=== PATIENT | male | born 1965 | race Two or more races ===

== ENCOUNTER 2021-11-16 16:42 | Inpatient (IN) | payer MEDICAID, OTHER ==
[~2021-11-16] VITALS: Ht 182.9 cm; Wt 113.7 kg
[2021-11-16] MEDS ORDERED: FUROSEMIDE 20 MG TAB PO ONE (17:45)
[2021-11-16 18:39] LABS: Basophils # (auto) 0.1 10 ^3/uL (0-0.2); Eosinophils # (auto) 0.1 10 ^3/uL (0-0.8); Eosinophils % (auto) 1.7 % (0.0-7.0); Hematocrit 46.4 % (41.0-53.0); Lymphocytes # (auto) 1.2 10 ^3/uL (0.4-5.4); Lymphocytes % (auto) 24.2 % (10.0-50.0); Mean Corpuscular Hemoglobin 28.9 pg (28.0-32.0); Mean Corpuscular Hgb Conc. 32.3 g/dL (32.0-36.0); Mean Corpuscular Volume 89.5 fL (80.0-100.0); Monocytes # (auto) 0.7 10 ^3/uL (0-1.3); Monocytes % (auto) 13.7 % (0.0-12.0); Neutrophils # (auto) 2.9 10 ^3/uL (1.6-8.6); Neutrophils % (auto) 59.4 % (37.0-80.0); Nucleated Red Blood Cells % 0.2 %; Red Blood Cells 5.19 10^6/uL (4.5-5.90); Red Cell Distribution Width 15.8 % (11.8-14.3)
[2021-11-16 19:21] LABS: Albumin 3.2 g/dL (3.4-5.0); BUN/Creatinine Ratio 14.5; Bilirubin, Total 0.6 mg/dL (0.2-1.0); Calcium 8.8 mg/dL (8.5-10.1); Total Protein 6.9 g/dL (6.4-8.2)
[2021-11-16] MEDS ORDERED: FUROSEMIDE INJECTION 100 MG in SODIUM CHL 0.9% 100 ML IV ONE (20:30)
[2021-11-16] MEDS ORDERED: NITROGLYCERIN 0.4 MG SL TAB SL PRN (20:30)
[2021-11-16] MEDS ORDERED: FUROSEMIDE INJECTION 0 ML ONE ×2 (21:04→22:28)
[2021-11-16] MEDS: SACUBITRIL-VALSARTAN 24mg/26mg TAB PO SCH (21:38)
[2021-11-16] MEDS: POTASSIUM CHL 20 Meq TABLET PO SCH (21:38)
[2021-11-16] MEDS: METOPROLOL SUCCINATE XL 50 MG TAB PO SCH (21:39)
[2021-11-16] MEDS ORDERED: FUROSEMIDE INJECTION 10 ML ONE (22:34)
[2021-11-17] MEDS ORDERED: FUROSEMIDE INJECTION 10 ML ONE (00:03)
[2021-11-17 00:36] VITALS: BP 133/96
[2021-11-17] MEDS: HYDROmorphone HCL 2 MG/ML VL IV PRN ×4 (03:38→23:15)
[2021-11-17 05:06] VITALS: BP 121/84
[2021-11-17] MEDS: SACUBITRIL-VALSARTAN 24mg/26mg TAB PO SCH ×2 (08:03→21:30)
[2021-11-17] MEDS: METOPROLOL SUCCINATE XL 50 MG TAB PO SCH ×2 (08:04→21:31)
[2021-11-17] MEDS: DIGOXIN 0.25 MG TAB PO SCH (08:04)
[2021-11-17] MEDS: POTASSIUM CHL 20 Meq TABLET PO SCH ×2 (08:05→21:30)
[2021-11-17 09:00] VITALS: BP 136/59
[2021-11-17 13:00] VITALS: BP 111/61
[2021-11-17] MEDS ORDERED: FUROSEMIDE 40 MG/4 ML VIAL IV STA (16:12)
[2021-11-17 17:00] VITALS: BP 131/59
[2021-11-17] MEDS: FUROSEMIDE INJECTION 100 MG in SODIUM CHL 0.9% 100 ML IV SCH (18:40)
[2021-11-17] MEDS: CARVEDILOL 12.5 MG TAB PO SCH (21:29)
[2021-11-18] MEDS: FUROSEMIDE INJECTION 100 MG in SODIUM CHL 0.9% 100 ML IV SCH (02:45)
[2021-11-18 04:36] VITALS: BP 109/68
[2021-11-18 05:38] LABS: Hematocrit 43.8 % (41.0-53.0); Hemoglobin 14.1 g/dL (13.5-17.5); Mean Corpuscular Hemoglobin 29.1 pg (28.0-32.0); Mean Corpuscular Hgb Conc. 32.2 g/dL (32.0-36.0); Mean Corpuscular Volume 90.2 fL (80.0-100.0); Red Blood Cells 4.86 10^6/uL (4.5-5.90); Red Cell Distribution Width 15.7 % (11.8-14.3); White Blood Cell 5.2 10^3/uL (4.4-10.8)
[2021-11-18 05:39] LABS: Calcium 8.9 mg/dL (8.5-10.1); Potassium 4.5 mmol/L (3.5-5.1)
[2021-11-18 05:43] LABS: BUN/Creatinine Ratio 17.1; Bilirubin, Total 1.6 mg/dL (0.2-1.0); Total Protein 6.4 g/dL (6.4-8.2)
[2021-11-18 05:45] LABS: Band Neutrophils % (manual) 0; Basophils % (manual) 0 (0.0-2.0); Blast Cells 0; Eosinophils % (manual) 0 (0-7); Metamyelocytes % 0; Myelocytes % 0; Promyelocytes % 0; Reactive Lymphocytes 0
[2021-11-18 07:22] LABS: Lymphocytes % (manual) 25 (10.0-50.0); Monocytes % (manual) 12 (0-12)
[2021-11-18 09:00] VITALS: BP 116/57
[2021-11-18] MEDS: POTASSIUM CHL 20 Meq TABLET PO SCH ×2 (10:46→22:17)
[2021-11-18] MEDS: METOPROLOL SUCCINATE XL 50 MG TAB PO SCH ×2 (10:47→22:13)
[2021-11-18] MEDS: CARVEDILOL 12.5 MG TAB PO SCH ×2 (10:47→22:00)
[2021-11-18] MEDS: SACUBITRIL-VALSARTAN 24mg/26mg TAB PO SCH ×2 (10:48→22:17)
[2021-11-18] MEDS: DIGOXIN 0.25 MG TAB PO SCH (10:48)
[2021-11-18] MEDS ORDERED: SPIR25TA8 PO (12:13)
[2021-11-18] MEDS ORDERED: SACU1TAB PO (12:13)
[2021-11-18] MEDS ORDERED: CARV12.544 PO (12:13)
[2021-11-18] MEDS ORDERED: ALBU108A5 INH (12:13)
[2021-11-18] MEDS ORDERED: ATOR20TA50 PO (12:13)
[2021-11-18] MEDS ORDERED: FURO40TA4 PO (12:13)
[2021-11-18] MEDS ORDERED: APIX5TAB PO (12:13)
[2021-11-18 13:00] VITALS: BP 96/74
[2021-11-18 17:00] VITALS: BP 104/76
[2021-11-18] MEDS: HYDROmorphone HCL 2 MG/ML VL IV PRN (20:54)
[2021-11-18 22:31] VITALS: BP 107/75
[2021-11-19] VITALS (7 sets, daily range): BP systolic 94–133; BP diastolic 43–87
[2021-11-19] MEDS: HYDROmorphone HCL 2 MG/ML VL IV PRN ×2 (03:46→22:09)
[2021-11-19 05:46] LABS: Basophils # (auto) 0 10 ^3/uL (0-0.2); Basophils % (auto) 0.8 % (0.0-2.0); Eosinophils # (auto) 0 10 ^3/uL (0-0.8); Eosinophils % (auto) 0.7 % (0.0-7.0); Hematocrit 46.5 % (41.0-53.0); Lymphocytes # (auto) 0.9 10 ^3/uL (0.4-5.4); Lymphocytes % (auto) 14.8 % (10.0-50.0); Mean Corpuscular Hemoglobin 29.2 pg (28.0-32.0); Mean Corpuscular Hgb Conc. 32.3 g/dL (32.0-36.0); Mean Corpuscular Volume 90.5 fL (80.0-100.0); Monocytes # (auto) 0.8 10 ^3/uL (0-1.3); Monocytes % (auto) 13.6 % (0.0-12.0); Neutrophils # (auto) 4.1 10 ^3/uL (1.6-8.6); Neutrophils % (auto) 70.1 % (37.0-80.0); Nucleated Red Blood Cells % 0.1 %; Red Blood Cells 5.14 10^6/uL (4.5-5.90); Red Cell Distribution Width 15.4 % (11.8-14.3); White Blood Cell 5.9 10^3/uL (4.4-10.8)
[2021-11-19 06:08] LABS: Albumin 3.2 g/dL (3.4-5.0); BUN/Creatinine Ratio 20.3; Calcium 9.2 mg/dL (8.5-10.1)
[2021-11-19 06:25] LABS: Bilirubin, Total 1.2 mg/dL (0.2-1.0); Total Protein 6.9 g/dL (6.4-8.2)
[2021-11-19 06:46] LABS: Potassium 5.6 mmol/L (3.5-5.1)
[2021-11-19] MEDS: FUROSEMIDE 40 MG/4 ML VIAL IV SCH ×2 (08:26→18:00)
[2021-11-19] MEDS: MORPHINE SULFATE INJECTION 2 MG/ML SYRG IV PRN ×2 (09:03→22:25)
[2021-11-19] MEDS: ONDANSETRON HCL 4 MG/2 ML VIAL IV PRN ×2 (09:39→22:20)
[2021-11-19 11:39] LABS: Basophils # (auto) 0 10 ^3/uL (0-0.2); Basophils % (auto) 0.5 % (0.0-2.0); Eosinophils # (auto) 0 10 ^3/uL (0-0.8); Eosinophils % (auto) 0.6 % (0.0-7.0); Hematocrit 46.9 % (41.0-53.0); Hemoglobin 14.9 g/dL (13.5-17.5); Lymphocytes # (auto) 0.8 10 ^3/uL (0.4-5.4); Lymphocytes % (auto) 15.3 % (10.0-50.0); Mean Corpuscular Hemoglobin 28.8 pg (28.0-32.0); Mean Corpuscular Hgb Conc. 31.8 g/dL (32.0-36.0); Mean Corpuscular Volume 90.5 fL (80.0-100.0); Monocytes # (auto) 0.8 10 ^3/uL (0-1.3); Monocytes % (auto) 13.8 % (0.0-12.0); Neutrophils # (auto) 3.9 10 ^3/uL (1.6-8.6); Neutrophils % (auto) 69.8 % (37.0-80.0); Nucleated Red Blood Cells % 0.2 %; Red Blood Cells 5.18 10^6/uL (4.5-5.90); Red Cell Distribution Width 15.4 % (11.8-14.3); White Blood Cell 5.5 10^3/uL (4.4-10.8)
[2021-11-19 12:02] LABS: Albumin 3.3 g/dL (3.4-5.0); BUN/Creatinine Ratio 20.7; Bilirubin, Total 1.3 mg/dL (0.2-1.0); Calcium 8.6 mg/dL (8.5-10.1); Total Protein 7.1 g/dL (6.4-8.2)
[2021-11-19] MEDS: DIGOXIN 0.25 MG TAB PO SCH (12:28)
[2021-11-19] MEDS: SACUBITRIL-VALSARTAN 24mg/26mg TAB PO SCH ×2 (12:28→22:00)
[2021-11-19 12:30] LABS: Potassium 5.7 mmol/L (3.5-5.1)
[2021-11-19] MEDS: CARVEDILOL 12.5 MG TAB PO SCH ×2 (12:31→22:00)
[2021-11-20 05:00] VITALS: BP 110/84
[2021-11-20] MEDS: FUROSEMIDE 40 MG/4 ML VIAL IV SCH ×2 (06:07→18:22)
[2021-11-20 07:19] LABS: Basophils # (auto) 0 10 ^3/uL (0-0.2); Basophils % (auto) 0.6 % (0.0-2.0); Eosinophils # (auto) 0.1 10 ^3/uL (0-0.8); Eosinophils % (auto) 1.1 % (0.0-7.0); Hematocrit 44.7 % (41.0-53.0); Hemoglobin 14.4 g/dL (13.5-17.5); Mean Corpuscular Hemoglobin 29.7 pg (28.0-32.0); Mean Corpuscular Hgb Conc. 32.3 g/dL (32.0-36.0); Mean Corpuscular Volume 91.9 fL (80.0-100.0); Neutrophils # (auto) 3.4 10 ^3/uL (1.6-8.6); Neutrophils % (auto) 59.2 % (37.0-80.0); Nucleated Red Blood Cells % 0.2 %; Red Blood Cells 4.86 10^6/uL (4.5-5.90); Red Cell Distribution Width 15.6 % (11.8-14.3); White Blood Cell 5.7 10^3/uL (4.4-10.8)
[2021-11-20 07:36] LABS: Lymphocytes % (auto) 20.8 % (10.0-50.0); Monocytes % (auto) 17.3 % (0.0-12.0)
[2021-11-20 07:38] LABS: Lymphocytes # (auto) 1.3 10 ^3/uL (0.4-5.4); Monocytes # (auto) 0.9 10 ^3/uL (0-1.3)
[2021-11-20 08:30] VITALS: BP 140/81
[2021-11-20] MEDS: CARVEDILOL 12.5 MG TAB PO SCH ×2 (09:35→22:00)
[2021-11-20] MEDS: DIGOXIN 0.25 MG TAB PO SCH (09:35)
[2021-11-20] MEDS: SACUBITRIL-VALSARTAN 24mg/26mg TAB PO SCH ×2 (09:35→22:00)
[2021-11-20 13:02] VITALS: BP 136/62
[2021-11-20] MEDS: HYDROmorphone HCL 2 MG/ML VL IV PRN ×2 (13:08→22:40)
[2021-11-20 14:02] LABS: BUN/Creatinine Ratio 21.3; Calcium 8.4 mg/dL (8.5-10.1); Potassium 4.4 mmol/L (3.5-5.1)
[2021-11-20 15:55] VITALS: BP 81/61
[2021-11-20 20:00] VITALS: BP 105/55
[2021-11-20 22:00] VITALS: BP 101/71
[2021-11-21 05:00] VITALS: BP 131/82
[2021-11-21] MEDS: HYDROmorphone HCL 2 MG/ML VL IV PRN ×3 (05:33→23:46)
[2021-11-21] MEDS: FUROSEMIDE 40 MG/4 ML VIAL IV SCH ×2 (06:04→19:55)
[2021-11-21 06:22] LABS: Potassium 5.1 mmol/L (3.5-5.1)
[2021-11-21 06:37] LABS: Albumin 2.9 g/dL (3.4-5.0); BUN/Creatinine Ratio 20.3; Bilirubin, Total 1.2 mg/dL (0.2-1.0); Calcium 8.6 mg/dL (8.5-10.1); Total Protein 6.3 g/dL (6.4-8.2)
[2021-11-21 08:55] VITALS: BP 135/68
[2021-11-21] MEDS: SACUBITRIL-VALSARTAN 24mg/26mg TAB PO SCH ×2 (11:48→22:00)
[2021-11-21] MEDS: DIGOXIN 0.25 MG TAB PO SCH (11:49)
[2021-11-21] MEDS: CARVEDILOL 12.5 MG TAB PO SCH ×2 (11:50→22:00)
[2021-11-21 12:34] VITALS: BP 127/73
[2021-11-21 16:46] VITALS: BP 115/85
[2021-11-21 23:50] VITALS: BP 105/66
[2021-11-22 04:50] VITALS: BP 121/78
[2021-11-22] MEDS: FUROSEMIDE 40 MG/4 ML VIAL IV SCH ×2 (06:09→19:19)
[2021-11-22] MEDS: HYDROmorphone HCL 2 MG/ML VL IV PRN ×2 (06:25→13:07)
[2021-11-22 09:00] VITALS: BP 127/89
[2021-11-22] MEDS: SACUBITRIL-VALSARTAN 24mg/26mg TAB PO SCH ×2 (11:05→22:27)
[2021-11-22] MEDS: DIGOXIN 0.25 MG TAB PO SCH (11:05)
[2021-11-22] MEDS: CARVEDILOL 12.5 MG TAB PO SCH ×2 (11:06→22:28)
[2021-11-22 12:00] VITALS: BP 142/72
[2021-11-22 16:00] VITALS: BP 131/83
[2021-11-22 20:00] VITALS: BP 112/87
[2021-11-22] MEDS: MAGNESIUM SULFATE 1GM/100ML 100 ML IV SCH ×3 (21:18→23:36)
[2021-11-22 21:46] VITALS: BP 112/87
[2021-11-22] MEDS: PIPERACILLIN-TAZO 4.5GM 100 ML IV SCH (22:55)
[2021-11-23] VITALS (7 sets, daily range): BP systolic 95–128; BP diastolic 58–86
[2021-11-23] MEDS: MAGNESIUM SULFATE 1GM/100ML 100 ML IV SCH (01:00)
[2021-11-23] MEDS: PIPERACILLIN-TAZO 4.5GM 100 ML IV SCH ×3 (05:05→21:29)
[2021-11-23] MEDS: FUROSEMIDE 40 MG/4 ML VIAL IV SCH ×2 (05:05→18:42)
[2021-11-23] MEDS: HYDROmorphone HCL 2 MG/ML VL IV PRN ×3 (06:13→23:48)
[2021-11-23] MEDS ORDERED: OMNIPAQUE ORAL SOLN 500ml 12mg/ml PO ONE (07:31)
[2021-11-23 09:23] LABS: Albumin 2.6 g/dL (3.4-5.0); BUN/Creatinine Ratio 17.5; Potassium 3.8 mmol/L (3.5-5.1)
[2021-11-23 09:25] LABS: Bilirubin, Total 1.1 mg/dL (0.2-1.0); Total Protein 6.1 g/dL (6.4-8.2)
[2021-11-23] MEDS ORDERED: IOHEXOL 300 MG/ML 100ML BOTTLE IJ ONE (09:51)
[2021-11-23] MEDS: CARVEDILOL 12.5 MG TAB PO SCH ×2 (11:09→21:27)
[2021-11-23] MEDS: SACUBITRIL-VALSARTAN 24mg/26mg TAB PO SCH ×2 (11:09→21:28)
[2021-11-23] MEDS: DIGOXIN 0.25 MG TAB PO SCH (11:10)
[2021-11-24] VITALS (7 sets, daily range): BP systolic 91–125; BP diastolic 52–80
[2021-11-24] MEDS: FUROSEMIDE 40 MG/4 ML VIAL IV SCH ×2 (05:46→17:30)
[2021-11-24] MEDS: PIPERACILLIN-TAZO 4.5GM 100 ML IV SCH ×3 (05:48→21:26)
[2021-11-24] MEDS: CARVEDILOL 12.5 MG TAB PO SCH ×2 (09:59→22:00)
[2021-11-24] MEDS: SACUBITRIL-VALSARTAN 24mg/26mg TAB PO SCH ×2 (10:00→21:26)
[2021-11-24] MEDS: DIGOXIN 0.25 MG TAB PO SCH (10:00)
[2021-11-24] MEDS: HYDROcodone-ACET 5/325MG TAB PO PRN ×2 (16:09→21:27)
[2021-11-25 05:00] VITALS: BP 130/65
[2021-11-25] MEDS: PIPERACILLIN-TAZO 4.5GM 100 ML IV SCH ×2 (05:51→14:00)
[2021-11-25] MEDS: FUROSEMIDE 40 MG/4 ML VIAL IV SCH ×2 (05:51→17:45)
[2021-11-25 09:00] VITALS: BP 136/83
[2021-11-25] MEDS: DIGOXIN 0.25 MG TAB PO SCH (10:00)
[2021-11-25] MEDS: SACUBITRIL-VALSARTAN 24mg/26mg TAB PO SCH (10:00)
[2021-11-25] MEDS: CARVEDILOL 12.5 MG TAB PO SCH (10:00)
[2021-11-25 11:07] VITALS: BP 134/90
[2021-11-25] MEDS: HYDROcodone-ACET 5/325MG TAB PO PRN ×2 (11:21→17:46)
[2021-11-25 13:00] VITALS: BP 131/100
[2021-11-25 17:00] VITALS: BP 103/70
[2021-11-25 17:54] VITALS: BP 131/81
== END 2021-11-25 20:55 | disposition home or self-care (01) | DRG 194 ==
LOC: ER 16:42 → EDBD 16:42 → TELE 20:22 → TELE-WESTW 23:33
PROVIDERS: ADMIT Internal Medicine Cardiovascular Disease; ATTEND Internal Medicine Cardiovascular Disease
DX: I11.0 Hypertensive heart disease with heart failure (principal); E66.01 Morbid (severe) obesity due to excess calories; I50.21 Acute systolic (congestive) heart failure; I48.91 Unspecified atrial fibrillation; I49.3 Ventricular premature depolarization; Z68.34 Body mass index [BMI] 34.0-34.9, adult; Z95.810 Presence of automatic (implantable) cardiac defibrillator; K42.9 Umbilical hernia without obstruction or gangrene; Z20.822 Contact with and (suspected) exposure to COVID-19
CPT/HCPCS: 36415; 71046; 74177; 80048; 80053; 83735; 83880; 84484; 85007; 85025; 85027; 87426; 93005; 96365; 99291; G0378; J2405; J2543

== ENCOUNTER 2021-12-04 15:43 | Inpatient (IN) | payer MEDICAID ==
[~2021-12-04] VITALS: Ht 188 cm; Wt 114.5 kg
[~2021-12-04 15:43] MED LIST: ALBU108A5 INH; APIX5TAB PO; ATOR20TA50 PO; CARV12.544 PO; FURO40TA4 PO; SACU1TAB PO; SPIR25TA8 PO
[2021-12-04 16:56] LABS: Basophils # (auto) 0.1 10 ^3/uL (0-0.2); Basophils % (auto) 2.2 % (0.0-2.0); Eosinophils # (auto) 0.1 10 ^3/uL (0-0.8); Eosinophils % (auto) 1.5 % (0.0-7.0); Hematocrit 43.4 % (41.0-53.0); Hemoglobin 14.1 g/dL (13.5-17.5); Lymphocytes # (auto) 0.9 10 ^3/uL (0.4-5.4); Lymphocytes % (auto) 19.5 % (10.0-50.0); Mean Corpuscular Hemoglobin 28.6 pg (28.0-32.0); Mean Corpuscular Hgb Conc. 32.5 g/dL (32.0-36.0); Mean Corpuscular Volume 88.1 fL (80.0-100.0); Monocytes # (auto) 0.6 10 ^3/uL (0-1.3); Monocytes % (auto) 12.6 % (0.0-12.0); Neutrophils # (auto) 2.9 10 ^3/uL (1.6-8.6); Neutrophils % (auto) 64.2 % (37.0-80.0); Nucleated Red Blood Cells % 0.3 %; Red Blood Cells 4.93 10^6/uL (4.5-5.90); Red Cell Distribution Width 15.5 % (11.8-14.3); White Blood Cell 4.6 10^3/uL (4.4-10.8)
[2021-12-04 17:21] LABS: Calcium 8.5 mg/dL (8.5-10.1); Magnesium 2.2 mg/dL (1.6-2.6)
[2021-12-04 17:26] LABS: BUN/Creatinine Ratio 19.1; Bilirubin, Total 0.6 mg/dL (0.2-1.0); Total Protein 7.4 g/dL (6.4-8.2)
[2021-12-04] MEDS ORDERED: ONDANSETRON HCL 4 MG/2 ML VIAL IV ONE (17:45)
[2021-12-04] MEDS ORDERED: MORPHINE SULFATE 4 MG/ML SYR/VIAL IV ONE (17:45)
[2021-12-04 17:48] LABS: Urine Bacteria NONE SEEN /hpf (None Seen); Urine Blood Negative /uL (Negative); Urine Specific Gravity 1.018 (1.001-1.035); Urine WBC 1 /hpf (0 - 3)
[2021-12-04] MEDS ORDERED: NITROGLYCERIN 0.4 MG SL TAB SL PRN (22:00)
[2021-12-04] MEDS ORDERED: MORPHINE SULFATE INJECTION 2 MG/ML SYRG IV PRN ×2 (22:00)
[2021-12-04 23:05] VITALS: BP 134/76
[2021-12-04 23:10] VITALS: BP 134/76
[2021-12-04] MEDS: ATORVASTATIN 20 MG TAB PO SCH (23:26)
[2021-12-04] MEDS: HYDROcodone-ACET 5/325MG TAB PO PRN (23:27)
[2021-12-05] MEDS: DOXYCYCLINE 100MG/250ML 250 ML IV SCH ×2 (01:43→12:46)
[2021-12-05] MEDS: ACETAMINOPHEN 325 MG TAB PO PRN ×2 (04:26→21:22)
[2021-12-05 04:32] VITALS: BP 107/82
[2021-12-05] MEDS: HYDROcodone-ACET 5/325MG TAB PO PRN ×3 (06:00→19:50)
[2021-12-05 06:38] LABS: Basophils # (auto) 0 10 ^3/uL (0-0.2); Eosinophils # (auto) 0.1 10 ^3/uL (0-0.8); Eosinophils % (auto) 2.6 % (0.0-7.0); Hematocrit 42.9 % (41.0-53.0); Hemoglobin 13.9 g/dL (13.5-17.5); Lymphocytes # (auto) 1.2 10 ^3/uL (0.4-5.4); Lymphocytes % (auto) 24.3 % (10.0-50.0); Mean Corpuscular Hemoglobin 28.5 pg (28.0-32.0); Mean Corpuscular Hgb Conc. 32.3 g/dL (32.0-36.0); Mean Corpuscular Volume 88.1 fL (80.0-100.0); Monocytes # (auto) 0.8 10 ^3/uL (0-1.3); Monocytes % (auto) 16.8 % (0.0-12.0); Neutrophils # (auto) 2.7 10 ^3/uL (1.6-8.6); Neutrophils % (auto) 55.3 % (37.0-80.0); Nucleated Red Blood Cells % 0.1 %; Red Blood Cells 4.87 10^6/uL (4.5-5.90); Red Cell Distribution Width 15.6 % (11.8-14.3); White Blood Cell 4.9 10^3/uL (4.4-10.8)
[2021-12-05 06:51] LABS: Calcium 8.6 mg/dL (8.5-10.1); Potassium 3.9 mmol/L (3.5-5.1)
[2021-12-05 06:54] LABS: BUN/Creatinine Ratio 19.4
[2021-12-05 09:00] VITALS: BP 137/99
[2021-12-05] MEDS: FAMOTIDINE 20 MG TAB PO SCH (09:19)
[2021-12-05] MEDS: ASPirin-EC 81 mg tab PO SCH (09:20)
[2021-12-05] MEDS: CLOTRIMAZOLE 1 % CREAM 15GM TOP SCH ×2 (09:40→21:47)
[2021-12-05 13:00] VITALS: BP 144/106
[2021-12-05] MEDS ORDERED: POTASSIUM CHL 20 Meq TABLET PO ONE (14:00)
[2021-12-05] MEDS ORDERED: FUROSEMIDE 40 MG/4 ML VIAL IV ONE (14:00)
[2021-12-05] MEDS ORDERED: CARVEDILOL 3.125 MG TAB PO ONE (14:00)
[2021-12-05] MEDS ORDERED: LISINOPRIL 5 MG TAB PO SCH (16:17)
[2021-12-05] MEDS ORDERED: FURO40TA4 PO (16:23)
[2021-12-05] MEDS ORDERED: CLOT1CRE56 TOP (16:23)
[2021-12-05] MEDS ORDERED: APIX5TAB PO (16:23)
[2021-12-05] MEDS ORDERED: SACU1TAB PO (16:23)
[2021-12-05] MEDS ORDERED: ALBU108A5 INH (16:23)
[2021-12-05] MEDS ORDERED: ATOR20TA50 PO (16:23)
[2021-12-05] MEDS ORDERED: DOXY-338 PO (16:23)
[2021-12-05] MEDS ORDERED: CARV12.544 PO (16:23)
[2021-12-05 17:00] VITALS: BP 137/77
[2021-12-05 20:22] VITALS: BP 123/91
[2021-12-05] MEDS: DOXYCYCLINE 100 MG TAB/CAP PO SCH (21:47)
[2021-12-05] MEDS: SACUBITRIL-VALSARTAN 24mg/26mg TAB PO SCH (21:47)
[2021-12-05] MEDS: CARVEDILOL 12.5 MG TAB PO SCH (21:47)
[2021-12-05] MEDS: ATORVASTATIN 20 MG TAB PO SCH (21:47)
[2021-12-05] MEDS ORDERED: CARVEDILOL 3.125 MG TAB PO SCH (22:00)
[2021-12-05] MEDS: ONDANSETRON HCL 4 MG/2 ML VIAL IV PRN (22:32)
[2021-12-06] MEDS: HYDROcodone-ACET 5/325MG TAB PO PRN ×2 (04:23→14:30)
[2021-12-06 05:07] VITALS: BP 104/69
[2021-12-06 05:59] LABS: Basophils # (auto) 0 10 ^3/uL (0-0.2); Basophils % (auto) 0.9 % (0.0-2.0); Eosinophils # (auto) 0.1 10 ^3/uL (0-0.8); Eosinophils % (auto) 2.4 % (0.0-7.0); Hematocrit 40.4 % (41.0-53.0); Hemoglobin 13.2 g/dL (13.5-17.5); Lymphocytes # (auto) 0.9 10 ^3/uL (0.4-5.4); Lymphocytes % (auto) 24.5 % (10.0-50.0); Mean Corpuscular Hemoglobin 28.8 pg (28.0-32.0); Mean Corpuscular Hgb Conc. 32.7 g/dL (32.0-36.0); Mean Corpuscular Volume 88.1 fL (80.0-100.0); Monocytes # (auto) 0.7 10 ^3/uL (0-1.3); Neutrophils % (auto) 53.9 % (37.0-80.0); Nucleated Red Blood Cells % 0.1 %; Red Blood Cells 4.58 10^6/uL (4.5-5.90); Red Cell Distribution Width 15.8 % (11.8-14.3); White Blood Cell 3.6 10^3/uL (4.4-10.8)
[2021-12-06 06:11] LABS: Monocytes % (auto) 18.3 % (0.0-12.0)
[2021-12-06 06:14] LABS: Potassium 4.3 mmol/L (3.5-5.1)
[2021-12-06 06:20] LABS: BUN/Creatinine Ratio 18.1; Calcium 8.9 mg/dL (8.5-10.1)
[2021-12-06 08:40] VITALS: BP 116/76
[2021-12-06] MEDS ORDERED: FUROSEMIDE 20 MG TAB PO SCH (10:00)
[2021-12-06] MEDS ORDERED: POTASSIUM CHL 20 Meq TABLET PO SCH (10:00)
[2021-12-06] MEDS ORDERED: FUROSEMIDE 40 MG/4 ML VIAL IV SCH ×2 (10:00→22:00)
[2021-12-06] MEDS ORDERED: THIAMINE HCL 100 MG TAB PO SCH (10:00)
[2021-12-06] MEDS ORDERED: FOLIC ACID 1 MG TAB PO SCH (10:00)
[2021-12-06] MEDS: ONDANSETRON HCL 4 MG/2 ML VIAL IV PRN (10:17)
[2021-12-06] MEDS: SACUBITRIL-VALSARTAN 24mg/26mg TAB PO SCH (10:22)
[2021-12-06] MEDS: ASPirin-EC 81 mg tab PO SCH (10:22)
[2021-12-06] MEDS: CARVEDILOL 12.5 MG TAB PO SCH (10:24)
[2021-12-06] MEDS: FAMOTIDINE 20 MG TAB PO SCH (10:25)
[2021-12-06] MEDS: DOXYCYCLINE 100 MG TAB/CAP PO SCH (10:26)
[2021-12-06] MEDS: CLOTRIMAZOLE 1 % CREAM 15GM TOP SCH (10:29)
[2021-12-06 13:00] VITALS: BP 111/85
[2021-12-06] MEDS ORDERED: FUROSEMIDE 40 MG/4 ML VIAL IV ONE (14:00)
[2021-12-06 16:59] VITALS: BP 126/75
[2021-12-06 17:37] VITALS: BP 126/75
== END 2021-12-06 18:30 | disposition home health service (06) | DRG 194 ==
LOC: ER 15:43 → TELE-WESTW 21:55
PROVIDERS: ADMIT Nurse Practitioner Family; ATTEND Nurse Practitioner Family
DX: I13.0 Hypertensive heart and chronic kidney disease with heart failure and stage 1 through stage 4 chronic kidney disease, or unspecified chronic kidney disease (principal); I27.20 Pulmonary hypertension, unspecified; R18.8 Other ascites; I42.0 Dilated cardiomyopathy; B35.3 Tinea pedis; E66.9 Obesity, unspecified; F12.90 Cannabis use, unspecified, uncomplicated; I48.0 Paroxysmal atrial fibrillation; E78.5 Hyperlipidemia, unspecified; I50.23 Acute on chronic systolic (congestive) heart failure; R19.7 Diarrhea, unspecified; J44.9 Chronic obstructive pulmonary disease, unspecified; J98.11 Atelectasis; Z20.822 Contact with and (suspected) exposure to COVID-19; K42.9 Umbilical hernia without obstruction or gangrene; N18.30 Chronic kidney disease, stage 3 unspecified; Z68.32 Body mass index [BMI] 32.0-32.9, adult; Z79.01 Long term (current) use of anticoagulants; Z79.899 Other long term (current) drug therapy; Z86.73 Personal history of transient ischemic attack (TIA), and cerebral infarction without residual deficits; Z91.14 Patient's other noncompliance with medication regimen; Z95.810 Presence of automatic (implantable) cardiac defibrillator
CPT/HCPCS: 36415; 71045; 74176; 80048; 80053; 80061; 81001; 82140; 83735; 83880; 84484; 85025; 87045; 87081; 87427; 93005; 93306; 96374; 96375; 99291; G0378; J2405; J3490

== ENCOUNTER 2021-12-13 16:46 | Inpatient (IN) | payer MEDICAID ==
[~2021-12-13] VITALS: Ht 185.4 cm; Wt 103.0 kg
[~2021-12-13 16:46] MED LIST changes: +CLOT1CRE56 TOP; +DOXY-338 PO; -SPIR25TA8 PO
[2021-12-13 18:30] LABS: Basophils # (auto) 0.1 10 ^3/uL (0-0.2); Eosinophils # (auto) 0.1 10 ^3/uL (0-0.8); Eosinophils % (auto) 1.1 % (0.0-7.0); Hematocrit 41.7 % (41.0-53.0); Hemoglobin 13.5 g/dL (13.5-17.5); Lymphocytes # (auto) 0.7 10 ^3/uL (0.4-5.4); Mean Corpuscular Hemoglobin 27.9 pg (28.0-32.0); Mean Corpuscular Hgb Conc. 32.4 g/dL (32.0-36.0); Monocytes # (auto) 0.8 10 ^3/uL (0-1.3); Monocytes % (auto) 17.4 % (0.0-12.0); Neutrophils # (auto) 3.1 10 ^3/uL (1.6-8.6); Neutrophils % (auto) 64.5 % (37.0-80.0); Nucleated Red Blood Cells % 0.2 %; Red Blood Cells 4.84 10^6/uL (4.5-5.90); Red Cell Distribution Width 16.1 % (11.8-14.3); White Blood Cell 4.8 10^3/uL (4.4-10.8)
[2021-12-13 18:39] LABS: Calcium 8.2 mg/dL (8.5-10.1); Magnesium 1.8 mg/dL (1.6-2.6); Potassium 3.4 mmol/L (3.5-5.1)
[2021-12-13 18:47] LABS: BUN/Creatinine Ratio 13.7; Bilirubin, Total 1.8 mg/dL (0.2-1.0)
[2021-12-13 20:43] LABS: Urine Bacteria NONE SEEN /hpf (None Seen); Urine Blood TRACE /uL (Negative); Urine Hyaline Cast FEW /lpf (0 - 2); Urine Mucus FEW (None Seen); Urine Specific Gravity 1.022 (1.001-1.035); Urine WBC 3 /hpf (0 - 3)
[2021-12-13] MEDS ORDERED: MORPHINE SULFATE INJECTION 2 MG/ML SYRG IV PRN (21:15)
[2021-12-13] MEDS ORDERED: ONDANSETRON HCL 4 MG/2 ML VIAL IV PRN (21:15)
[2021-12-13] MEDS ORDERED: DOCUSATE SOD 100 MG CAP PO PRN (21:15)
[2021-12-13] MEDS ORDERED: NITROGLYCERIN 0.4 MG SL TAB SL PRN (21:15)
[2021-12-13] MEDS: POTASSIUM CHL 20MEQ/100ML 100 ML IV SCH (22:14)
[2021-12-13] MEDS: CARVEDILOL 12.5 MG TAB PO SCH (22:15)
[2021-12-13] MEDS: APIXABAN 5 MG TAB PO SCH (22:15)
[2021-12-13] MEDS: ATORVASTATIN 20 MG TAB PO SCH (22:16)
[2021-12-13] MEDS ORDERED: FUROSEMIDE 20 MG/2 ML VIAL ONE (22:27)
[2021-12-13] MEDS ORDERED: FUROSEMIDE 20 MG/2 ML VIAL IV ONE (22:30)
[2021-12-13 23:15] VITALS: BP 115/84
[2021-12-14] MEDS: SACUBITRIL-VALSARTAN 24mg/26mg TAB PO SCH ×3 (00:06→22:14)
[2021-12-14] MEDS: HYDROcodone-ACET 5/325MG TAB PO PRN ×3 (01:42→17:45)
[2021-12-14] MEDS ORDERED: POTASSIUM CHL 20MEQ/100ML 100 ML IV ONE (03:38)
[2021-12-14] MEDS: POTASSIUM CHL 20MEQ/100ML 100 ML IV SCH (03:40)
[2021-12-14 04:38] VITALS: BP 115/84
[2021-12-14] MEDS: FUROSEMIDE 40 MG/4 ML VIAL IV SCH ×2 (05:37→17:45)
[2021-12-14 05:59] LABS: Basophils # (auto) 0 10 ^3/uL (0-0.2); Basophils % (auto) 1.1 % (0.0-2.0); Eosinophils # (auto) 0.1 10 ^3/uL (0-0.8); Hemoglobin 12.8 g/dL (13.5-17.5); Lymphocytes # (auto) 1.3 10 ^3/uL (0.4-5.4); Lymphocytes % (auto) 28.4 % (10.0-50.0); Mean Corpuscular Hemoglobin 28.2 pg (28.0-32.0); Mean Corpuscular Hgb Conc. 32.8 g/dL (32.0-36.0); Mean Corpuscular Volume 85.9 fL (80.0-100.0); Monocytes # (auto) 0.8 10 ^3/uL (0-1.3); Monocytes % (auto) 17.8 % (0.0-12.0); Neutrophils # (auto) 2.3 10 ^3/uL (1.6-8.6); Neutrophils % (auto) 50.7 % (37.0-80.0); Nucleated Red Blood Cells % 0.2 %; Red Blood Cells 4.54 10^6/uL (4.5-5.90); Red Cell Distribution Width 15.9 % (11.8-14.3); White Blood Cell 4.5 10^3/uL (4.4-10.8)
[2021-12-14 06:25] LABS: BUN/Creatinine Ratio 15.4; Calcium 8.2 mg/dL (8.5-10.1); Magnesium 1.9 mg/dL (1.6-2.6); Potassium 3.6 mmol/L (3.5-5.1)
[2021-12-14 08:00] VITALS: BP 98/56
[2021-12-14] MEDS: CARVEDILOL 12.5 MG TAB PO SCH ×2 (10:25→22:13)
[2021-12-14] MEDS: APIXABAN 5 MG TAB PO SCH ×2 (10:25→22:13)
[2021-12-14 12:00] VITALS: BP 110/71
[2021-12-14 16:00] VITALS: BP 112/76
[2021-12-14] MEDS ORDERED: MORPHINE SULFATE INJECTION 2 MG/ML SYRG IV PRN (16:00)
[2021-12-14 20:00] VITALS: BP 138/87
[2021-12-14 21:58] VITALS: BP 133/87
[2021-12-14] MEDS: ATORVASTATIN 20 MG TAB PO SCH (22:14)
[2021-12-15] MEDS: HYDROcodone-ACET 5/325MG TAB PO PRN ×2 (03:21→11:23)
[2021-12-15 05:12] VITALS: BP 111/51
[2021-12-15] MEDS: FUROSEMIDE 40 MG/4 ML VIAL IV SCH (05:39)
[2021-12-15 09:06] VITALS: BP 121/76
[2021-12-15] MEDS: CARVEDILOL 12.5 MG TAB PO SCH (10:25)
[2021-12-15] MEDS: APIXABAN 5 MG TAB PO SCH (10:26)
[2021-12-15] MEDS: SACUBITRIL-VALSARTAN 24mg/26mg TAB PO SCH (10:26)
[2021-12-15 12:34] VITALS: BP 97/73
== END 2021-12-15 14:22 | disposition home or self-care (01) | DRG 203 ==
LOC: EDBD 16:46 → ER 16:46 → TELE 21:09 → TELE-WESTW 23:00
PROVIDERS: ADMIT Hospitalist; ATTEND Hospitalist
PROC: 4B02XSZ Measurement of Cardiac Pacemaker, External Approach (ICD-10-PCS; principal; 2021-12-14)
DX: R07.9 Chest pain, unspecified (principal); I50.23 Acute on chronic systolic (congestive) heart failure; I42.9 Cardiomyopathy, unspecified; I13.0 Hypertensive heart and chronic kidney disease with heart failure and stage 1 through stage 4 chronic kidney disease, or unspecified chronic kidney disease; I48.0 Paroxysmal atrial fibrillation; E78.5 Hyperlipidemia, unspecified; N18.30 Chronic kidney disease, stage 3 unspecified; J44.9 Chronic obstructive pulmonary disease, unspecified; Z20.822 Contact with and (suspected) exposure to COVID-19; M15.9 Polyosteoarthritis, unspecified; Z83.3 Family history of diabetes mellitus; Z95.810 Presence of automatic (implantable) cardiac defibrillator; Z80.1 Family history of malignant neoplasm of trachea, bronchus and lung
CPT/HCPCS: 36415; 71045; 80048; 80053; 81001; 83735; 83880; 84484; 85025; 87081; 93005; 93970; 96374; G0378; J3480

== ENCOUNTER 2021-12-17 00:41 | Inpatient (IN) | payer MEDICAID ==
[~2021-12-17] VITALS: Ht 182.9 cm; Wt 103.5 kg
[~2021-12-17 00:41] MED LIST changes: -CLOT1CRE56 TOP; -DOXY-338 PO
[2021-12-17] MEDS ORDERED: ALBUTEROL SULF 2.5 MG/0.5ML(0.5%) NEB SOLN NEB ONE (02:15)
[2021-12-17] MEDS ORDERED: FUROSEMIDE 100 MG/10ML VIAL IV ONE (02:15)
[2021-12-17 02:43] LABS: Hematocrit 41.7 % (41.0-53.0); Hemoglobin 13.6 g/dL (13.5-17.5); Mean Corpuscular Hemoglobin 28.2 pg (28.0-32.0); Mean Corpuscular Hgb Conc. 32.7 g/dL (32.0-36.0); Mean Corpuscular Volume 86.1 fL (80.0-100.0); Red Blood Cells 4.84 10^6/uL (4.5-5.90); Red Cell Distribution Width 15.9 % (11.8-14.3); White Blood Cell 5.8 10^3/uL (4.4-10.8)
[2021-12-17 03:01] LABS: Band Neutrophils % (manual) 0; Basophils % (manual) 0 (0.0-2.0); Blast Cells 0; Eosinophils % (manual) 0 (0-7); Metamyelocytes % 0; Myelocytes % 0; Promyelocytes % 0; Reactive Lymphocytes 0
[2021-12-17 03:16] LABS: Calcium 8.4 mg/dL (8.5-10.1); Potassium 3.5 mmol/L (3.5-5.1)
[2021-12-17 03:19] LABS: BUN/Creatinine Ratio 14.3
[2021-12-17 03:23] LABS: Bilirubin, Total 1.1 mg/dL (0.2-1.0)
[2021-12-17] MEDS ORDERED: HYDROmorphone HCL 2 MG/ML VL IV ONE (04:00)
[2021-12-17 04:08] LABS: Lymphocytes % (manual) 16 (10.0-50.0); Monocytes % (manual) 18 (0-12)
[2021-12-17] MEDS ORDERED: ACETAMINOPHEN 325 MG TAB PO PRN (05:30)
[2021-12-17] MEDS ORDERED: hydrALAZINE HCL 10 MG TAB PO PRN (05:30)
[2021-12-17] MEDS ORDERED: ONDANSETRON HCL 4 MG/2 ML VIAL IV PRN (05:45)
[2021-12-17] MEDS: HYDROcodone-ACET 5/325MG TAB PO PRN ×2 (06:53→17:30)
[2021-12-17 07:01] LABS: Urine Bacteria NONE SEEN /hpf (None Seen); Urine Blood Negative /uL (Negative); Urine Specific Gravity 1.004 (1.001-1.035); Urine WBC 2 /hpf (0 - 3)
[2021-12-17 08:29] LABS: BUN/Creatinine Ratio 14.6; Calcium 8.5 mg/dL (8.5-10.1); Potassium 3.2 mmol/L (3.5-5.1)
[2021-12-17 08:37] LABS: Basophils # (auto) 0 10 ^3/uL (0-0.2); Basophils % (auto) 0.6 % (0.0-2.0); Eosinophils # (auto) 0 10 ^3/uL (0-0.8); Eosinophils % (auto) 0.3 % (0.0-7.0); Hematocrit 41.8 % (41.0-53.0); Hemoglobin 13.8 g/dL (13.5-17.5); Lymphocytes # (auto) 0.7 10 ^3/uL (0.4-5.4); Lymphocytes % (auto) 13.2 % (10.0-50.0); Mean Corpuscular Hemoglobin 28.1 pg (28.0-32.0); Mean Corpuscular Hgb Conc. 32.9 g/dL (32.0-36.0); Mean Corpuscular Volume 85.4 fL (80.0-100.0); Monocytes % (auto) 17.7 % (0.0-12.0); Neutrophils # (auto) 3.7 10 ^3/uL (1.6-8.6); Neutrophils % (auto) 68.2 % (37.0-80.0); Red Cell Distribution Width 16.2 % (11.8-14.3); White Blood Cell 5.4 10^3/uL (4.4-10.8)
[2021-12-17] MEDS: FUROSEMIDE 40 MG/4 ML VIAL IV SCH ×2 (10:55→22:16)
[2021-12-17] MEDS: FAMOTIDINE 20 MG TAB PO SCH (10:55)
[2021-12-17] MEDS: POTASSIUM CHL 20 Meq TABLET PO SCH (10:55)
[2021-12-17 13:00] VITALS: BP 158/61
[2021-12-17 17:00] VITALS: BP 145/115
[2021-12-17 17:30] VITALS: BP 138/87
[2021-12-17 21:00] LABS: Magnesium 1.7 mg/dL (1.6-2.6); Potassium 3.7 mmol/L (3.5-5.1)
[2021-12-17] MEDS: MORPHINE SULFATE INJECTION 2 MG/ML SYRG IV PRN (21:22)
[2021-12-17 22:00] VITALS: BP 129/76
[2021-12-18] MEDS: HYDROcodone-ACET 5/325MG TAB PO PRN ×3 (01:41→18:16)
[2021-12-18] MEDS: MORPHINE SULFATE INJECTION 2 MG/ML SYRG IV PRN ×3 (04:50→21:15)
[2021-12-18 05:00] VITALS: BP 142/85
[2021-12-18 06:08] LABS: Hemoglobin 13.7 g/dL (13.5-17.5); Mean Corpuscular Hemoglobin 28.7 pg (28.0-32.0); Mean Corpuscular Hgb Conc. 33.5 g/dL (32.0-36.0); Mean Corpuscular Volume 85.6 fL (80.0-100.0); Red Blood Cells 4.79 10^6/uL (4.5-5.90); Red Cell Distribution Width 16.5 % (11.8-14.3); White Blood Cell 4.2 10^3/uL (4.4-10.8)
[2021-12-18 06:19] LABS: Band Neutrophils % (manual) 0; Basophils % (manual) 0 (0.0-2.0); Blast Cells 0; Metamyelocytes % 0; Myelocytes % 0; Promyelocytes % 0; Reactive Lymphocytes 0
[2021-12-18 06:24] LABS: Potassium 3.2 mmol/L (3.5-5.1)
[2021-12-18 06:40] LABS: Calcium 8.6 mg/dL (8.5-10.1); Magnesium 2.1 mg/dL (1.6-2.6)
[2021-12-18 08:11] LABS: Eosinophils % (manual) 2 (0-7); Lymphocytes % (manual) 11 (10.0-50.0); Monocytes % (manual) 23 (0-12)
[2021-12-18 09:00] VITALS: BP 131/104
[2021-12-18] MEDS: POTASSIUM CHL 20 Meq TABLET PO SCH (09:14)
[2021-12-18] MEDS: FUROSEMIDE 40 MG/4 ML VIAL IV SCH ×2 (09:14→22:27)
[2021-12-18] MEDS: FAMOTIDINE 20 MG TAB PO SCH (09:14)
[2021-12-18] MEDS ORDERED: SPIR25TA8 PO (09:48)
[2021-12-18] MEDS ORDERED: SACU1TAB PO (09:51)
[2021-12-18 13:00] VITALS: BP 142/110
[2021-12-18 17:00] VITALS: BP 152/73
[2021-12-18 21:51] VITALS: BP 134/87
[2021-12-18] MEDS: SACUBITRIL-VALSARTAN 24mg/26mg TAB PO SCH (22:00)
[2021-12-18] MEDS: ATORVASTATIN 20 MG TAB PO SCH (22:00)
[2021-12-18] MEDS: APIXABAN 5 MG TAB PO SCH (22:00)
[2021-12-18] MEDS: CARVEDILOL 12.5 MG TAB PO SCH (22:30)
[2021-12-19] MEDS: HYDROcodone-ACET 5/325MG TAB PO PRN ×4 (02:16→22:13)
[2021-12-19] MEDS: MORPHINE SULFATE INJECTION 2 MG/ML SYRG IV PRN (04:47)
[2021-12-19 05:13] VITALS: BP 127/85
[2021-12-19 08:43] VITALS: BP 143/105
[2021-12-19] MEDS: FUROSEMIDE 40 MG/4 ML VIAL IV SCH ×2 (09:38→22:11)
[2021-12-19] MEDS: SPIRONOLACTONE 25 MG TAB PO SCH (09:39)
[2021-12-19] MEDS: SACUBITRIL-VALSARTAN 24mg/26mg TAB PO SCH ×2 (09:40→22:12)
[2021-12-19] MEDS: APIXABAN 5 MG TAB PO SCH (09:40)
[2021-12-19] MEDS: CARVEDILOL 12.5 MG TAB PO SCH ×2 (09:40→22:12)
[2021-12-19] MEDS: FAMOTIDINE 20 MG TAB PO SCH (09:41)
[2021-12-19] MEDS: POTASSIUM CHL 20 Meq TABLET PO SCH (09:41)
[2021-12-19 12:56] VITALS: BP 118/52
[2021-12-19 14:34] LABS: BUN/Creatinine Ratio 15.7; Calcium 8.1 mg/dL (8.5-10.1); Potassium 3.9 mmol/L (3.5-5.1)
[2021-12-19 17:00] VITALS: BP 111/66
[2021-12-19 21:46] VITALS: BP 140/80
[2021-12-19] MEDS ORDERED: ENOXAPARIN SOD 100 MG/1 ML SYRINGE SC SCH (22:00)
[2021-12-19] MEDS: ATORVASTATIN 20 MG TAB PO SCH (22:12)
[2021-12-20] MEDS: MORPHINE SULFATE INJECTION 2 MG/ML SYRG IV PRN (03:00)
[2021-12-20 05:00] VITALS: BP 118/75
[2021-12-20 06:43] LABS: Hematocrit 42.9 % (41.0-53.0); Hemoglobin 14.1 g/dL (13.5-17.5); Mean Corpuscular Hemoglobin 28.1 pg (28.0-32.0); Mean Corpuscular Volume 85.2 fL (80.0-100.0); Red Blood Cells 5.03 10^6/uL (4.5-5.90); Red Cell Distribution Width 16.8 % (11.8-14.3); White Blood Cell 3.5 10^3/uL (4.4-10.8)
[2021-12-20 06:50] LABS: Band Neutrophils % (manual) 0; Basophils % (manual) 0 (0.0-2.0); Blast Cells 0; Metamyelocytes % 0; Myelocytes % 0; Promyelocytes % 0; Reactive Lymphocytes 0
[2021-12-20 06:57] LABS: Calcium 8.2 mg/dL (8.5-10.1); Magnesium 2.3 mg/dL (1.6-2.6); Potassium 3.7 mmol/L (3.5-5.1)
[2021-12-20 09:00] VITALS: BP 121/84
[2021-12-20] MEDS: SACUBITRIL-VALSARTAN 24mg/26mg TAB PO SCH ×2 (09:59→22:27)
[2021-12-20] MEDS: POTASSIUM CHL 20 Meq TABLET PO SCH (09:59)
[2021-12-20] MEDS: SPIRONOLACTONE 25 MG TAB PO SCH (10:00)
[2021-12-20] MEDS: FUROSEMIDE 40 MG/4 ML VIAL IV SCH ×2 (10:01→22:25)
[2021-12-20] MEDS: CARVEDILOL 12.5 MG TAB PO SCH ×2 (10:01→22:27)
[2021-12-20] MEDS: FAMOTIDINE 20 MG TAB PO SCH (10:05)
[2021-12-20 11:48] LABS: Eosinophils % (manual) 5 (0-7); Lymphocytes % (manual) 32 (10.0-50.0); Monocytes % (manual) 17 (0-12)
[2021-12-20 13:00] VITALS: BP 85/61
[2021-12-20 17:00] VITALS: BP 102/69
[2021-12-20 22:00] VITALS: BP 133/93
[2021-12-20] MEDS: ATORVASTATIN 20 MG TAB PO SCH (22:27)
[2021-12-20] MEDS ORDERED: TEMAZEPAM 15 MG CAP PO ONE (22:45)
[2021-12-21 05:00] VITALS: BP 106/71
[2021-12-21] MEDS ORDERED: LIDOCAINE 2%HCL (LOCAL ANESTH.) INJ 10ml MDV ONE (07:59)
[2021-12-21] MEDS ORDERED: IOHEXOL 350 MG/ML 100ML IJ ONE (07:59)
[2021-12-21] MEDS ORDERED: VANCOMYCIN 1GM/250ML 250 ML IV ONE ×2 (08:18→08:30)
[2021-12-21 08:56] VITALS: BP 120/80
[2021-12-21] MEDS: FUROSEMIDE 40 MG/4 ML VIAL IV SCH (10:28)
[2021-12-21] MEDS: SPIRONOLACTONE 25 MG TAB PO SCH (10:28)
[2021-12-21] MEDS: POTASSIUM CHL 20 Meq TABLET PO SCH (10:29)
[2021-12-21] MEDS: FAMOTIDINE 20 MG TAB PO SCH (10:29)
[2021-12-21] MEDS: CARVEDILOL 12.5 MG TAB PO SCH (10:30)
[2021-12-21] MEDS: SACUBITRIL-VALSARTAN 24mg/26mg TAB PO SCH (10:30)
[2021-12-21] MEDS: HYDROcodone-ACET 5/325MG TAB PO PRN ×2 (12:49→20:52)
[2021-12-21 12:50] VITALS: BP 116/45
[2021-12-21 17:00] VITALS: BP 98/62
[2021-12-21 20:00] LABS: INR 1.21 (0.9-1.15)
[2021-12-21 21:47] VITALS: BP 115/89
[2021-12-22] VITALS (9 sets, daily range): BP systolic 99–149; BP diastolic 60–99
[2021-12-22] MEDS: FUROSEMIDE 40 MG/4 ML VIAL IV SCH ×3 (01:08→21:54)
[2021-12-22] MEDS: CARVEDILOL 12.5 MG TAB PO SCH ×3 (01:09→21:55)
[2021-12-22] MEDS: ATORVASTATIN 20 MG TAB PO SCH ×2 (01:09→21:54)
[2021-12-22] MEDS: SACUBITRIL-VALSARTAN 24mg/26mg TAB PO SCH ×3 (01:09→21:54)
[2021-12-22 05:11] LABS: Basophils # (auto) 0 10 ^3/uL (0-0.2); Eosinophils # (auto) 0.1 10 ^3/uL (0-0.8); Eosinophils % (auto) 2.5 % (0.0-7.0); Hemoglobin 15.2 g/dL (13.5-17.5); Lymphocytes # (auto) 1.5 10 ^3/uL (0.4-5.4); Lymphocytes % (auto) 35.7 % (10.0-50.0); Mean Corpuscular Hemoglobin 28.2 pg (28.0-32.0); Mean Corpuscular Hgb Conc. 33.1 g/dL (32.0-36.0); Mean Corpuscular Volume 85.2 fL (80.0-100.0); Monocytes # (auto) 0.7 10 ^3/uL (0-1.3); Monocytes % (auto) 16.3 % (0.0-12.0); Neutrophils # (auto) 1.9 10 ^3/uL (1.6-8.6); Neutrophils % (auto) 44.5 % (37.0-80.0); Nucleated Red Blood Cells % 0.4 %; Red Cell Distribution Width 16.2 % (11.8-14.3); White Blood Cell 4.2 10^3/uL (4.4-10.8)
[2021-12-22 05:37] LABS: BUN/Creatinine Ratio 22.9; Calcium 8.4 mg/dL (8.5-10.1); Potassium 3.9 mmol/L (3.5-5.1)
[2021-12-22] MEDS ORDERED: IODIXANOL 320MG/ML 100ML BTL IV ONE (07:50)
[2021-12-22] MEDS ORDERED: fentaNYL CITRATE 100 MCG/2 ML VL ONE (08:20)
[2021-12-22] MEDS ORDERED: MIDAZOLAM HCL 2MG/2ML 2ml VIAL (1mg/ml) ONE (08:20)
[2021-12-22] MEDS ORDERED: VANCOMYCIN 1GM/250ML 250 ML IV ONE (08:20)
[2021-12-22] MEDS ORDERED: ceFAZolin 1GM VL ONE (08:29)
[2021-12-22] MEDS ORDERED: VANCOMYCIN HCL 1000 MG VL ONE (08:29)
[2021-12-22] MEDS ORDERED: DIGOXIN 0.25 MG TAB ONE (08:38)
[2021-12-22] MEDS ORDERED: DIGOXIN (250MCG/ML) 2 ML AMPULE ONE (08:42)
[2021-12-22] MEDS ORDERED: DIGOXIN (250MCG/ML) 2 ML AMPULE IV ONE (08:45)
[2021-12-22] MEDS ORDERED: GELATIN 1 SPONGE SIZE 50 TOP ONE (08:55)
[2021-12-22] MEDS ORDERED: DOXYCYCLINE 100MG/250ML 250 ML IV ONE (10:00)
[2021-12-22] MEDS ORDERED: ceFAZolin 2 GM in D5W 5% 100 ML IV ONE (11:00)
[2021-12-22] MEDS ORDERED: DOX100T PO (11:02)
[2021-12-22] MEDS: SPIRONOLACTONE 25 MG TAB PO SCH (11:03)
[2021-12-22] MEDS: FAMOTIDINE 20 MG TAB PO SCH (11:03)
[2021-12-22] MEDS: POTASSIUM CHL 20 Meq TABLET PO SCH (11:03)
[2021-12-22] MEDS ORDERED: HYDR-4902 PO (11:24)
[2021-12-22] MEDS ORDERED: SPIR25TA8 PO (11:24)
[2021-12-22] MEDS ORDERED: ATOR20TA50 PO (11:24)
[2021-12-22] MEDS ORDERED: ALBU108A5 INH (11:24)
[2021-12-22] MEDS ORDERED: SACU1TAB PO (11:24)
[2021-12-22] MEDS ORDERED: CARV12.544 PO (11:24)
[2021-12-22] MEDS ORDERED: APIX5TAB PO (11:24)
[2021-12-22] MEDS ORDERED: FURO40TA4 PO (11:24)
[2021-12-22] MEDS: MORPHINE SULFATE INJECTION 2 MG/ML SYRG IV PRN ×2 (11:32→18:49)
[2021-12-22] MEDS: HYDROcodone-ACET 5/325MG TAB PO PRN ×2 (14:45→21:55)
[2021-12-22] MEDS: DOXYCYCLINE 100MG/250ML 250 ML IV SCH ×2 (14:49→18:49)
[2021-12-22] MEDS: DOXYCYCLINE 100 MG TAB/CAP PO SCH (21:55)
[2021-12-23] MEDS: MORPHINE SULFATE INJECTION 2 MG/ML SYRG IV PRN ×2 (01:56→08:26)
[2021-12-23] MEDS: HYDROcodone-ACET 5/325MG TAB PO PRN (03:55)
[2021-12-23 05:00] VITALS: BP 109/86
[2021-12-23 08:00] VITALS: BP 132/88
[2021-12-23 08:02] VITALS: BP 122/80
[2021-12-23 09:00] VITALS: BP 132/88
[2021-12-23] MEDS ORDERED: HYDR-4902 PO (09:48)
[2021-12-23] MEDS: CARVEDILOL 12.5 MG TAB PO SCH (10:17)
[2021-12-23] MEDS: SPIRONOLACTONE 25 MG TAB PO SCH (10:18)
[2021-12-23] MEDS: FAMOTIDINE 20 MG TAB PO SCH (10:18)
[2021-12-23] MEDS: FUROSEMIDE 40 MG/4 ML VIAL IV SCH (10:18)
[2021-12-23] MEDS: POTASSIUM CHL 20 Meq TABLET PO SCH (10:18)
[2021-12-23] MEDS: SACUBITRIL-VALSARTAN 24mg/26mg TAB PO SCH (10:18)
[2021-12-23] MEDS: DOXYCYCLINE 100 MG TAB/CAP PO SCH (10:19)
[2021-12-23 12:21] VITALS: BP 114/75
== END 2021-12-23 12:00 | disposition home or self-care (01) | DRG 176 ==
LOC: ER 00:41 → EDBD 00:41 → TELE 05:19 → TELE-CENTR 08:56
PROVIDERS: ADMIT Nurse Practitioner Family; ATTEND Nurse Practitioner Family
PROC: 0JPT0PZ Removal of Cardiac Rhythm Related Device from Trunk Subcutaneous Tissue and Fascia, Open Approach (ICD-10-PCS; principal; 2021-12-22)
PROC: 0JH609Z Insertion of Cardiac Resynchronization Defibrillator Pulse Generator into Chest Subcutaneous Tissue and Fascia, Open Approach (ICD-10-PCS; 2021-12-22)
DX: T82.119A Breakdown (mechanical) of unspecified cardiac electronic device, initial encounter (principal); J96.01 Acute respiratory failure with hypoxia; I50.23 Acute on chronic systolic (congestive) heart failure; I42.0 Dilated cardiomyopathy; Z79.01 Long term (current) use of anticoagulants; I48.91 Unspecified atrial fibrillation; K43.9 Ventral hernia without obstruction or gangrene; I11.0 Hypertensive heart disease with heart failure; I49.9 Cardiac arrhythmia, unspecified; Y83.8 Other surgical procedures as the cause of abnormal reaction of the patient, or of later complication, without mention of misadventure at the time of the procedure; Z20.822 Contact with and (suspected) exposure to COVID-19; R00.0 Tachycardia, unspecified; J44.9 Chronic obstructive pulmonary disease, unspecified; Z80.1 Family history of malignant neoplasm of trachea, bronchus and lung; Z83.3 Family history of diabetes mellitus; Z86.73 Personal history of transient ischemic attack (TIA), and cerebral infarction without residual deficits; Z95.810 Presence of automatic (implantable) cardiac defibrillator; Z79.899 Other long term (current) drug therapy; Z72.89 Other problems related to lifestyle; Y92.89 Other specified places as the place of occurrence of the external cause
CPT/HCPCS: 33264; 36415; 71045; 80048; 80053; 81001; 83735; 83880; 84132; 84484; 85007; 85025; 85027; 85610; 85730; 86850; 86900; 86901; 87081; 93005; 94640; 96374; 96375; 99152; 99153; G0378; J0690; J2001; J2250; J3490; J7060; Q9967